=== PATIENT | female | born 1940 | race Caucasian/White ===

== ENCOUNTER → 2016-04-23 | Outpatient (CLI) | payer MEDICARE ==
[~2016-04-23] MED LIST: CALC600T34 PO; COQ10 PO; DIOV160T60 PO; FLUTI110I INH; HYDR-2768 PO; LEVO25TA36 PO; MAGNESIUM PO; METO50TA PO; OMEP20CA5 PO; ROSU10 PO; [UNRECOGNIZED DRUG - OTHER] PO
== END ==
LOC: CWND 10:15
DX: Z46.6 Encounter for fitting and adjustment of urinary device (principal)
CPT/HCPCS: 99211; G0463